=== PATIENT | male | born 1985 | race Two or more races ===

== ENCOUNTER 2024-01-22 22:06 | Emergency (ER) | payer OTHER ==
[~2024-01-22] VITALS: Ht 172.7 cm; Wt 68.0 kg
[2024-01-23 00:18] VITALS: BP 152/73; TEMP 98.1; O2SAT 98
[2024-01-23] MEDS ORDERED: IBUP-1490 PO (01:01)
[2024-01-23] MEDS ORDERED: IBUPROFEN 600 MG TABLET ONE (01:04)
[2024-01-23] MEDS: IBUPROFEN 600 MG TABLET PO ONE (01:04)
== END 2024-01-23 01:13 | disposition home or self-care (01) ==
LOC: ER 22:26
DX: S93.505A Unspecified sprain of left lesser toe(s), initial encounter (principal); X58.XXXA Exposure to other specified factors, initial encounter; Y93.01 Activity, walking, marching and hiking; Y92.89 Other specified places as the place of occurrence of the external cause; Y99.8 Other external cause status